=== PATIENT | female | born 1995 ===

== ENCOUNTER 2020-12-24 10:17 | Outpatient (CLI) | payer OTHER | END 2020-12-24 10:26 | disposition HB | LOC: RX STUDY 10:17 | DX: N97.8 Female infertility of other origin (principal) ==

== ENCOUNTER 2023-12-17 09:04 | Outpatient (CLI) | payer OTHER | END 2023-12-17 09:07 | disposition home or self-care (01) | LOC: PRENATAL 09:04 | PROVIDERS: ATTEND Obstetrics & Gynecology Maternal & Fetal Medicine | DX: O36.80X0 Pregnancy with inconclusive fetal viability, not applicable or unspecified (principal); Z36.82 Encounter for antenatal screening for nuchal translucency; Z14.8 Genetic carrier of other disease; Z3A.13 13 weeks gestation of pregnancy ==

== ENCOUNTER 2024-01-14 12:18 | Outpatient (CLI) | payer OTHER | END 2024-01-14 12:19 | disposition home or self-care (01) | LOC: PRENATAL 12:18 | PROVIDERS: ATTEND Obstetrics & Gynecology Maternal & Fetal Medicine | DX: O36.80X0 Pregnancy with inconclusive fetal viability, not applicable or unspecified (principal); Z36.82 Encounter for antenatal screening for nuchal translucency; Z14.8 Genetic carrier of other disease; Z3A.14 14 weeks gestation of pregnancy ==

== ENCOUNTER 2024-03-02 13:35 | Outpatient (CLI) | payer OTHER | END 2024-03-02 13:36 | disposition home or self-care (01) | LOC: PRENATAL 13:35 | PROVIDERS: ATTEND Obstetrics & Gynecology Maternal & Fetal Medicine | DX: O35.3XX0 Maternal care for (suspected) damage to fetus from viral disease in mother, not applicable or unspecified (principal); O44.00 Complete placenta previa NOS or without hemorrhage, unspecified trimester; O34.219 Maternal care for unspecified type scar from previous cesarean delivery; O99.210 Obesity complicating pregnancy, unspecified trimester; Z3A.20 20 weeks gestation of pregnancy ==